=== PATIENT | female | born 1990 | race Caucasian/White ===

== ENCOUNTER 2018-01-25 07:02 | Emergency (ER) | payer MEDICAID ==
[~2018-01-25] VITALS: Ht 162.6 cm; Wt 81.8 kg
[2018-01-25 07:03] VITALS: BP 141/96
[2018-01-25] MEDS ORDERED: naproxen 500mg tablet PO ONE (07:15)
[2018-01-25] MEDS ORDERED: NAPR-56 PO (07:19)
== END 2018-01-25 08:38 | disposition home or self-care (01) ==
LOC: ER 07:03
DX: S90.122A Contusion of left lesser toe(s) without damage to nail, initial encounter (principal); F17.200 Nicotine dependence, unspecified, uncomplicated; F12.90 Cannabis use, unspecified, uncomplicated; Z88.1 Allergy status to other antibiotic agents; Z79.899 Other long term (current) drug therapy; Z56.0 Unemployment, unspecified; X50.3XXA Overexertion from repetitive movements, initial encounter; Y93.01 Activity, walking, marching and hiking; Y92.89 Other specified places as the place of occurrence of the external cause; Y99.8 Other external cause status
CPT/HCPCS: 73660; 99283

== ENCOUNTER 2018-01-31 07:00 | Emergency (ER) | payer MEDICAID ==
[~2018-01-31] VITALS: Ht 162.6 cm; Wt 79.5 kg
[~2018-01-31 07:00] MED LIST: NAPR-56 PO
[2018-01-31 07:08] VITALS: BP 143/87
[2018-01-31] MEDS ORDERED: clindamycin 150mg capsule PO ONE (07:40)
[2018-01-31] MEDS ORDERED: CLIN300C85 PO (07:42)
[2018-01-31] MEDS ORDERED: ketorolac trometh inj. 60 MG/2 ML VIAL IM ONE (07:55)
[2018-01-31] MEDS ORDERED: HYDROcodone/acetaminophen 5mg/325mg tablet PO ONE (07:55)
[2018-01-31] MEDS ORDERED: ondansetron 4mg rapidly disintigrating tab PO ONE (07:55)
[2018-01-31] MEDS ORDERED: HYDR-3965 PO (07:56)
== END 2018-01-31 08:18 | disposition home or self-care (01) ==
LOC: ER 07:01
DX: L02.612 Cutaneous abscess of left foot (principal); F12.90 Cannabis use, unspecified, uncomplicated; Z56.0 Unemployment, unspecified; Z88.1 Allergy status to other antibiotic agents; Z79.2 Long term (current) use of antibiotics; Z79.899 Other long term (current) drug therapy
CPT/HCPCS: 10060; 96372; 99284; J1885